=== PATIENT | female | born 1960 | race Caucasian/White ===

== ENCOUNTER 2018-01-20 10:05 | Emergency (ER) | payer SELFPAY ==
[~2018-01-20] VITALS: Ht 170.2 cm; Wt 55.0 kg
[~2018-01-20 10:05] MED LIST: BIOT5000 PO; CLIN1CAP6 PO; FLUO20SO3 PO
[2018-01-20 10:07] VITALS: BP 131/84; PULSE 82; RESP 16; TEMP 98; O2SAT 97
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
--- NOTE | 2018-01-20 11:02 | RADRPT ---
EXAM DATE/TIME: 01/20/2018 10:35 [facility] COMPARISON: CHEST PA & LAT, January 15, 2016, 12:12. INDICATIONS : Right lower rib pain/bruising post fall onto a coffee table 2 days ago. MEDICAL HISTORY : Gastroesophageal reflux disease. Lupus. Hepatitis C. SURGICAL HISTORY : Splenectomy. Hysterectomy. ENCOUNTER: Initial ACUITY: 2 days PAIN SCORE: 10/10 LOCATION: Right lateral ribs FINDINGS: PA and lateral views of the chest demonstrate the lungs to be symmetrically aerated without evidence of mass, infiltrate or effusion. The cardiomediastinal contours are unremarkable. Osseous structure s are intact. Surgical clips GE junction. CONCLUSION: No acute disease. Joseph Moffett MD FACR on January 20, 2018 at 10:59 Board Certified Radiologist. This report was verified electronically.
== END 2018-01-20 11:17 | disposition home or self-care (01) ==
LOC: PHEFT 10:05
DX: S20.211A Contusion of right front wall of thorax, initial encounter (principal); F17.210 Nicotine dependence, cigarettes, uncomplicated; M32.9 Systemic lupus erythematosus, unspecified; F41.9 Anxiety disorder, unspecified; K21.9 Gastro-esophageal reflux disease without esophagitis; W01.0XXA Fall on same level from slipping, tripping and stumbling without subsequent striking against object, initial encounter; Z86.19 Personal history of other infectious and parasitic diseases; Z79.899 Other long term (current) drug therapy
CPT/HCPCS: 71046; 94150; 99283

== ENCOUNTER 2018-03-16 12:43 | Emergency (ER) | payer SELFPAY ==
[~2018-03-16] VITALS: Ht 170.2 cm; Wt 54.3 kg
[2018-03-16 12:46] VITALS: BP 162/90; PULSE 88; RESP 16; TEMP 98.3; O2SAT 98
[2018-03-16] MEDS ORDERED: PROZ40CA PO (13:04)
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
[2018-03-16 13:30] LABS: AUTOMATED NEUTROPHIL # 2.8 TH/MM3 (1.8-7.7); BASOPHIL # 0.1 TH/MM3 (0-0.2); BASOPHIL % 0.9 % (0.0-2.0); EOSINOPHIL # 0.1 TH/MM3 (0-0.4); EOSINOPHIL % 2.1 % (0.0-4.0); HEMATOCRIT 34.7 % (35.0-46.0); HEMOGLOBIN 11.6 GM/DL (11.6-15.3); LYMPH % 41.1 % (9.0-44.0); LYMPHOCYTE # 2.6 TH/MM3 (1.0-4.8); MEAN CELL VOLUME 99.6 FL (80.0-100.0); MEAN CORPUSCULAR HEMOGLOBIN 33.3 PG (27.0-34.0); MEAN CORPUSCULAR HGB CONC 33.4 % (32.0-36.0); MEAN PLATELET VOLUME 8.9 FL (7.0-11.0); MONO % 9.7 % (0.0-8.0); MONOCYTE # 0.6 TH/MM3 (0-0.9); NEUT % 46.2 % (16.0-70.0); PLATELET COUNT 168 TH/MM3 (150-450); RED BLOOD COUNT 3.48 MIL/MM3 (4.00-5.30); RED CELL DISTRIBUTION WIDTH 13.3 % (11.6-17.2); WHITE BLOOD COUNT 6.2 TH/MM3 (4.0-11.0)
[2018-03-16 13:39] LABS: BICARBONATE 26.6 MEQ/L (21.0-32.0); CALCIUM 8.6 MG/DL (8.5-10.1)
[2018-03-16 13:42] LABS: INTERNATIONAL NORMALIZED RATIO 1.3 RATIO; PROTHROMBIN TIME - PATIENT 12.7 SEC (9.8-11.6)
[2018-03-16 13:43] LABS: CREATININE 0.6 MG/DL (0.50-1.00)
[2018-03-16] MEDS ORDERED: VENL75CA44 PO (14:10)
[2018-03-16 14:23] VITALS: BP 153/93
== END 2018-03-16 14:25 | disposition home or self-care (01) ==
LOC: PHED 12:43
DX: R04.0 Epistaxis (principal); M32.9 Systemic lupus erythematosus, unspecified; F41.9 Anxiety disorder, unspecified; K21.9 Gastro-esophageal reflux disease without esophagitis; F17.200 Nicotine dependence, unspecified, uncomplicated; Z86.19 Personal history of other infectious and parasitic diseases; Z79.899 Other long term (current) drug therapy
CPT/HCPCS: 80048; 85025; 85610; 85730; 99283